=== PATIENT | male | born 1990 | race Caucasian/White ===

== ENCOUNTER 2018-08-03 01:30 | Emergency (ER) | payer OTHER, MEDICAID ==
[~2018-08-03] VITALS: Ht 167.6 cm; Wt 53.5 kg
[2018-08-03 01:59] VITALS: BP 134/88
[2018-08-03] MEDS ORDERED: KETOROLAC 30 MG/ML VIAL IM ONE (02:20)
[2018-08-03 02:57] VITALS: BP 134/88
== END 2018-08-03 02:57 | disposition home or self-care (01) ==
LOC: MED 01:30
DX: J20.9 Acute bronchitis, unspecified (principal); J02.9 Acute pharyngitis, unspecified
CPT/HCPCS: 71045; 96372; 99283; J1885; Q0092